=== PATIENT | male | born 1950 | race Caucasian/White ===

== ENCOUNTER → 2021-08-06 | Outpatient (CLI) | payer MEDICARE, BC | LOC: HEART 5 07:55 | DX: I25.10 Atherosclerotic heart disease of native coronary artery without angina pectoris (principal); R07.89 Other chest pain; R06.02 Shortness of breath | CPT/HCPCS: 78452; 93306; A9502; J2785 ==

== ENCOUNTER → 2022-01-18 | Outpatient (CLI) | payer OTHER | LOC: EMI 09:33 | DX: M54.12 Radiculopathy, cervical region (principal) | CPT/HCPCS: 72141; 72148 ==

== ENCOUNTER → 2022-02-07 | Outpatient (CLI) | payer OTHER | LOC: KOH-I 09:46 | DX: M50.01 Cervical disc disorder with myelopathy, high cervical region (principal); M48.02 Spinal stenosis, cervical region | CPT/HCPCS: 72125 ==

== ENCOUNTER → 2022-02-19 | Outpatient (CLI) | payer OTHER ==
[~2022-02-19] MED LIST: AMBIEN10 MG PO; ASPIRIN CHEWABL81 MG PO; CRESTOR 10 MG T10 MG PO; LISINOPRIL5 MG PO; METOPROLOL SUCC25 MG PO; ONE DAILY COMP1 EACH PO; ONE DAILY FOR1 EAC1 PO
[2022-02-19 11:31] LABS: HEMOGLOBIN 13.8 gm/dl (14.0-17.5); RED BLOOD COUNT 4.7 M/UL (4.20-5.50); WHITE BLOOD COUNT 7.6 K/UL (4.5-11.0)
[2022-02-19 11:57] LABS: BUN/CREATININE RATIO 23 (0-10)
== END ==
LOC: OPSV2 10:00 → EDSTATUS 10:00 → OPSV2 10:22
PROVIDERS: Orthopaedic Surgery
DX: Z01.818 Encounter for other preprocedural examination (principal); M54.12 Radiculopathy, cervical region; G95.9 Disease of spinal cord, unspecified
CPT/HCPCS: 71046; 80048; 81001; 85027; 87081

== ENCOUNTER 2022-03-04 05:16 | Inpatient (IN) | payer OTHER ==
[~2022-03-04] VITALS: Ht 182.9 cm; Wt 92.5 kg
[2022-03-04 06:30] LABS: BUN/CREATININE RATIO 19 (0-10)
[2022-03-04 15:23] LABS: HEMOGLOBIN 12.4 gm/dl (14.0-17.5); RED BLOOD COUNT 4.17 M/UL (4.20-5.50); WHITE BLOOD COUNT 9.7 K/UL (4.5-11.0)
[2022-03-04 15:45] LABS: BUN/CREATININE RATIO 16 (0-10)
[2022-03-05 03:52] LABS: HEMOGLOBIN 12.4 gm/dl (14.0-17.5); RED BLOOD COUNT 4.19 M/UL (4.20-5.50); WHITE BLOOD COUNT 8.3 K/UL (4.5-11.0)
[2022-03-05 04:15] LABS: BUN/CREATININE RATIO 19 (0-10)
[2022-03-06 03:14] LABS: BUN/CREATININE RATIO 28 (0-10)
[2022-03-06 03:39] LABS: HEMOGLOBIN 12.2 gm/dl (14.0-17.5); RED BLOOD COUNT 4.09 M/UL (4.20-5.50)
[2022-03-06 03:43] LABS: WHITE BLOOD COUNT 15.6 K/UL (4.5-11.0)
[2022-03-06 15:36] LABS: HEMOGLOBIN 10.7 gm/dl (14.0-17.5); RED BLOOD COUNT 3.61 M/UL (4.20-5.50)
[2022-03-06 15:55] LABS: BUN/CREATININE RATIO 30 (0-10)
[2022-03-07 04:50] LABS: HEMOGLOBIN 10.7 gm/dl (14.0-17.5); RED BLOOD COUNT 3.6 M/UL (4.20-5.50); WHITE BLOOD COUNT 15.1 K/UL (4.5-11.0)
[2022-03-07 05:17] LABS: BUN/CREATININE RATIO 36 (0-10)
[2022-03-08 03:14] LABS: RED BLOOD COUNT 3.71 M/UL (4.20-5.50); WHITE BLOOD COUNT 13.3 K/UL (4.5-11.0)
[2022-03-08 03:35] LABS: BUN/CREATININE RATIO 41 (0-10)
[2022-03-09 02:42] LABS: HEMOGLOBIN 10.6 gm/dl (14.0-17.5); RED BLOOD COUNT 3.58 M/UL (4.20-5.50)
[2022-03-09 02:55] LABS: BUN/CREATININE RATIO 45 (0-10)
--- NOTE | 2022-03-09 16:18 | NUR ---
PT C/O OF INCREASING HEADACHE, WORSE UPON MOVEMENT. DERIAN MEDINA MADE AWARE. STATES PT TO BE ON BEDREST, MD WILL NOTIFY ESTEBAN MEDINA. REPEATED AND VERIFIED. PT RESTING IN BED WITH NAD, VSS.
--- NOTE | 2022-03-09 18:30 | NUR ---
JACKELYN MEDINA CALL AT THIS TIME. RN INSTRUCTED TO KEEP PT SITTING UP, TAKE DRAINS OFF SUCTION. REPEATED AND VERIFIED. PT REPORTS IMPROVING SYMPTOMS AT THIS TIME. SAMUEL, JADIEL.
[2022-03-10 04:33] LABS: HEMOGLOBIN 11.5 gm/dl (14.0-17.5); RED BLOOD COUNT 3.89 M/UL (4.20-5.50); WHITE BLOOD COUNT 10.4 K/UL (4.5-11.0)
[2022-03-10 04:48] LABS: BUN/CREATININE RATIO 44 (0-10)
[2022-03-10 22:08] LABS: HEMOGLOBIN 10.6 gm/dl (14.0-17.5); RED BLOOD COUNT 3.55 M/UL (4.20-5.50)
[2022-03-10 22:09] LABS: WHITE BLOOD COUNT 18.6 K/UL (4.5-11.0)
[2022-03-10 22:39] LABS: BUN/CREATININE RATIO 51 (0-10)
[2022-03-11 04:48] LABS: HEMOGLOBIN 10.2 gm/dl (14.0-17.5); RED BLOOD COUNT 3.49 M/UL (4.20-5.50); WHITE BLOOD COUNT 19.5 K/UL (4.5-11.0)
[2022-03-11 05:10] LABS: BUN/CREATININE RATIO 56 (0-10)
[2022-03-12 04:03] LABS: HEMOGLOBIN 8.8 gm/dl (14.0-17.5)
[2022-03-12 04:05] LABS: RED BLOOD COUNT 2.9 M/UL (4.20-5.50); WHITE BLOOD COUNT 13.1 K/UL (4.5-11.0)
[2022-03-12 04:25] LABS: BUN/CREATININE RATIO 55 (0-10)
[2022-03-13 05:10] LABS: HEMOGLOBIN 8.7 gm/dl (14.0-17.5); RED BLOOD COUNT 2.91 M/UL (4.20-5.50); WHITE BLOOD COUNT 12.5 K/UL (4.5-11.0)
[2022-03-13 05:33] LABS: BUN/CREATININE RATIO 37 (0-10)
[2022-03-14 08:42] LABS: HEMOGLOBIN 9.4 gm/dl (14.0-17.5); RED BLOOD COUNT 3.14 M/UL (4.20-5.50); WHITE BLOOD COUNT 13.2 K/UL (4.5-11.0)
[2022-03-14] MEDS ORDERED: BRILINTA 90 MG90 MG PO (11:24)
[2022-03-14] MEDS ORDERED: ATORVASTATIN CA20 MG PO (11:24)
[2022-03-14] MEDS ORDERED: LOPRESSOR 25 MG25 MG PO (11:24)
[2022-03-14] MEDS ORDERED: ACETAMINOPHEN325 MG PO (11:31)
== END 2022-03-14 13:20 | disposition home health service (06) | DRG 28 ==
LOC: OR 05:16 → CCU 16:45
PROVIDERS: Internal Medicine; Nurse Practitioner Family; ADMIT Orthopaedic Surgery
PROC: 0RG20A0 Fusion of 2 or more Cervical Vertebral Joints with Interbody Fusion Device, Anterior Approach, Anterior Column, Open Approach (ICD-10-PCS; principal; 2022-03-04 07:30)
PROC: 0RT30ZZ Resection of Cervical Vertebral Disc, Open Approach (ICD-10-PCS; 2022-03-04 07:30)
PROC: 0RG2071 Fusion of 2 or more Cervical Vertebral Joints with Autologous Tissue Substitute, Posterior Approach, Posterior Column, Open Approach (ICD-10-PCS; 2022-03-06)
PROC: 0RG4071 Fusion of Cervicothoracic Vertebral Joint with Autologous Tissue Substitute, Posterior Approach, Posterior Column, Open Approach (ICD-10-PCS; 2022-03-06)
PROC: 0RG6071 Fusion of Thoracic Vertebral Joint with Autologous Tissue Substitute, Posterior Approach, Posterior Column, Open Approach (ICD-10-PCS; 2022-03-06)
PROC: 00NW0ZZ Release Cervical Spinal Cord, Open Approach (ICD-10-PCS; 2022-03-06)
PROC: 00NX0ZZ Release Thoracic Spinal Cord, Open Approach (ICD-10-PCS; 2022-03-06)
PROC: 4A11X4G Monitoring of Peripheral Nervous Electrical Activity, Intraoperative, External Approach (ICD-10-PCS; 2022-03-06)
PROC: 027034Z Dilation of Coronary Artery, One Artery with Drug-eluting Intraluminal Device, Percutaneous Approach (ICD-10-PCS; 2022-03-10)
PROC: X2CY3T7 Extirpation of Matter from Great Vessel using Computer-aided Mechanical Aspiration, Percutaneous Approach, New Technology Group 7 (ICD-10-PCS; 2022-03-10)
PROC: 4A023N7 Measurement of Cardiac Sampling and Pressure, Left Heart, Percutaneous Approach (ICD-10-PCS; 2022-03-10)
PROC: B2111ZZ Fluoroscopy of Multiple Coronary Arteries using Low Osmolar Contrast (ICD-10-PCS; 2022-03-10)
PROC: B24BZZZ Ultrasonography of Heart with Aorta (ICD-10-PCS; 2022-03-10)
PROC: 3E033XZ Introduction of Vasopressor into Peripheral Vein, Percutaneous Approach (ICD-10-PCS; 2022-03-10)
PROC: B24BZZZ Ultrasonography of Heart with Aorta (ICD-10-PCS; 2022-03-12)
DX: M54.12 Radiculopathy, cervical region (principal); I21.09 ST elevation (STEMI) myocardial infarction involving other coronary artery of anterior wall; R57.0 Cardiogenic shock; M47.12 Other spondylosis with myelopathy, cervical region; G95.89 Other specified diseases of spinal cord; D62 Acute posthemorrhagic anemia; I47.1 Supraventricular tachycardia; M54.13 Radiculopathy, cervicothoracic region; E78.5 Hyperlipidemia, unspecified; I10 Essential (primary) hypertension; Z96.653 Presence of artificial knee joint, bilateral; M48.061 Spinal stenosis, lumbar region without neurogenic claudication; G47.00 Insomnia, unspecified; I25.10 Atherosclerotic heart disease of native coronary artery without angina pectoris; Z95.5 Presence of coronary angioplasty implant and graft; Z98.49 Cataract extraction status, unspecified eye; Z90.49 Acquired absence of other specified parts of digestive tract; Z79.82 Long term (current) use of aspirin; Z79.899 Other long term (current) drug therapy
CPT/HCPCS: ECHO; 36415; 71045; 72040; 72050; 76000; 80048; 80061; 80076; 82550; 82553; 82962; 83036; 83735; 83880; 84484; 85014; 85018; 85025; 85027; 85347; 85610; 85730; 86850; 86900; 86901; 92973; 93005; 93306; 93308; 97110; 97116; 97116-GP-CQ; 97161; 97164; 97166; 97168; 97530-GP-CQ; 99152; 99153; C1713; C1725; C1757; C1762; C1769; C1781; C1874; C1887; J0282; J0330; J0360; J0461; J0690; J0696; J1040; J1100; J1170; J1200; J1644; J1885; J2001; J2250; J2270; J2370; J2405; J2704; J3010; J3246; J3370; J3475; J7040; Q9965